=== PATIENT | male | born 1955 ===

== ENCOUNTER 2017-07-07 12:30 | Inpatient (IN) | payer MEDICARE, OTHER ==
[2017-07-07 12:30] VITALS: BMI 36.5
--- NOTE | 2017-07-07 13:16 | C.PDOC ---
History Of Present Illness 61 y/o male, with history of coronary problems, presents to the ER for right- sided abdominal pain which began yesterday afternoon. Patient reports that sent him to the ER in order to have a CAT Scan done. Patient has his lab reports and the hemoglobin count is elevated, the wbc count is normal, and the H&H is normal. Patient reports that he has good appetite and he last ate at 2:30 am in the morning.Patient denies that he has any vomiting, fever, dysuria, and urine frequency. Chief Complaint (Nursing): Abdominal Pain History Per: Patient History/Exam Limitations: no limitations Onset/Duration Of Symptoms: Hrs Current Symptoms Are (Timing): Still Present Severity: Moderate Past Medical History Reviewed: Historical Data, Nursing Documentation, Vital Signs Vital Signs: Last Vital Signs Temp 98.3 F 07/07/17 22:30 Pulse 99 H 07/07/17 22:30 Resp 21 07/07/17 22:30 BP 155/86 H 07/07/17 22:30 Pulse Ox 100 07/07/17 22:30 - Medical History PMH: HTN, Hypercholesterolemia Denies: Chronic Kidney Disease Comment Only: Sleep Apnea (pt denies) Surgical History: CABG (X5), Coronary Stent, Endoscopy Denies: Pacemaker - [facility] Procedures CORONAR ARTERIOGR-2 CATH (03/13/15) INSERTION OF TWO VASCULAR STENTS (03/13/15) INSRT OF DRUG-ELUTING CORON ARTERY STENTS(S) (03/13/15) LEFT HEART CARDIAC CATH (03/13/15) LT HEART ANGIOCARDIOGRAM (03/13/15) MEASURE OF CARDIAC SAMPL & PRESSURE, L HEART, PERC APPROACH (03/06/16) PERCUTANEOUS TRANSLUMINAL CORONARY ANGIOPLASTY [PTCA] (03/13/15) PLAIN RADIOGRAPHY OF LEFT HEART USING LOW OSMOLAR CONTRAST (03/06/16) PLAIN RADIOGRAPHY OF MULT COR ART USING L OSM CONTRAST (03/06/16) PROCEDURE ON SINGLE VESSEL (03/13/15) SPINAL CANAL INJECT NEC (05/31/97) Family History: States: No Known Family Hx - Social History Hx Alcohol Use: No Hx Substance Use: No Review Of Systems Except As Marked, All Systems Reviewed And Found Negative. Constitutional: Negative for: Fever, Chills Gastrointestinal: Positive for: Abdominal Pain. Negative for: Nausea, Vomiting , Diarrhea Genitourinary: Negative for: Dysuria, Frequency Physical Exam - Physical Exam Appears: Non-toxic, No Acute Distress, Other (awake, alert AOx3) Skin: Normal Color, Warm Head: Atraumatic, Normacephalic Eye(s): bilateral: Normal Inspection, PERRL Ear(s): Bilateral: Normal Nose: Normal Oral Mucosa: Moist Neck: Supple Lymphatic: No Adenopathy Chest: Symmetrical, No Tenderness (chest wall) Cardiovascular: Rhythm Regular Respiratory: Normal Breath Sounds, No Accessory Muscle Use, No Rales, No Rhonchi , No Wheezing Gastrointestinal/Abdominal: Normal Exam, Bowel Sounds (active bowel sounds), Soft, Tenderness (right side of abdomen and right costal margin ), Guarding ( RLQ Quadrant) Extremity: Normal ROM Neurological/Psych: Oriented x3, Normal Speech, Normal Cognition, Normal Motor, Normal Sensation ED Course And Treatment - Laboratory Results Result Diagrams: 07/07/17 13:29 07/07/17 13:29 O2 Sat by Pulse Oximetry: 96 (RA) Pulse Ox Interpretation: Normal - CT Scan/US US - Abdomen Other Rad Studies (CT/US): Read By Radiologist, Radiology Report Reviewed CT/US Interpretation: HISTORY: abd pain R sided. COMPARISON: None available. TECHNIQUE: Sonographic evaluation of the right upper quadrant of the abdomen. FINDINGS: LIVER: Measures 16.5 cm in length. Echogenic liver may be seen in setting of hepatic parenchymal disease or fatty infiltration. No focal hepatic mass identified. The main portal vein appears patent with normal directional flow. No intrahepatic bile duct dilatation. GALLBLADDER: No gallstones. No gallbladder wall thickening or pericholecystic edema. Negative sonographic Leahy's sign as assessed by the financial developer. COMMON BILE DUCT: Measures 3 mm. PANCREAS: Not well-visualized. RIGHT KIDNEY: Measures 13.4 x 6.8 x 6.6 cm. No obstructing calculus or hydronephrosis. Upper pole renal cyst measures approximately 1.4 x 1.9 x 1.6 cm. AORTA: Limited visualization appears grossly unremarkable. IVC: Limited visualization appears grossly unremarkable. OTHER FINDINGS: None . IMPRESSION: Echogenic liver may be seen in setting of hepatic parenchymal disease or fatty infiltration. 1.9 cm right upper pole renal cyst. CT - Abdomen Other Rad Studies (CT/US): Read By Radiologist, Radiology Report Reviewed CT/US Interpretation: PROCEDURE: CT Abdomen and Pelvis with contrast. HISTORY : abd pain. COMPARISON: Limited abdominal ultrasound performed 07/07/17. TECHNIQUE: Contrast dose: 100 cc Visipaque 320. Radiation dose: Total exam DLP = 1320.93 mGy-cm. This CT exam was performed using one or more of the following dose reduction techniques: Automated exposure control, adjustment of the mA and/or kV according to patient size, and/or use of iterative reconstruction technique. FINDINGS: LOWER THORAX: Partially imaged loculated left-sided pleural effusion with associated consolidation. LIVER: Unremarkable. GALLBLADDER AND BILE DUCTS: Unremarkable. PANCREAS: Pancreatic atrophy. SPLEEN: Unremarkable. ADRENALS: Unremarkable. KIDNEYS AND URETERS: The kidneys enhance symmetrically. No hydronephrosis or obstructing calculus identified. 18 mm low-density exophytic right upper pole renal lesion measures approximately 13 HU, likely cyst. Additional 17 mm left renal lesion measures approximately 7 HU consistent with cyst. Too small to characterize left renal hypodensity; statistically likely cyst. VASCULATURE: No aortic aneurysm. BOWEL: Stomach is nondistended. Lack of oral contrast limits evaluation for bowel pathology. Bowel loops appear within normal limits of caliber without evidence of obstruction. APPENDIX: Dilated appendix measuring approximately 13 mm contains evidence of appendicolith and associated inflammatory stranding ; appearance consistent with acute appendicitis. Correlate clinically. PERITONEUM: No significant free fluid. No definite air. LYMPH NODES: No bulky adenopathy identified. BLADDER: Unremarkable. REPRODUCTIVE: The prostate gland measures approximately 3.9 x 5.8 cm. BONES: Degenerative changes most severe at L5-S1 with obliteration of the intervertebral disc space. OTHER FINDINGS: Fat containing left inguinal hernia. IMPRESSION: Partially imaged loculated left-sided pleural effusion with associated consolidation. Dilated appendix measuring approximately 13 mm contains evidence of appendicolith and associated inflammatory stranding ; appearance consistent with acute appendicitis. Correlate clinically. Enlarged prostate gland. Recommend correlation with PSA. Additional findings as above. Emergent findings related to the patient's MERLENE Mena on 07/07/17 at 3:48 p.m. Medical Decision Making Medical Decision Making: Differential Diagnoses Appendicitis vs. Cholecystitis vs. Bowel Obstruction Plan: -- Abd. & Pelv. CT -- Abdomen Limited CT --Labs Test Results -- WBC- high --US- Neg for GallBladder Disease Disposition Discussed With : Bonita Dunlap - Disposition Disposition: HOSPITALIZED Disposition Time: 16:11 Condition: GUARDED - Clinical Impression Clinical Impression: Appendicitis - Scribe Statement The provider has reviewed the documentation as recorded by the Jaunibe Laura Winn Provider Attestation: All medical record entries made by the Jaunibe were at my direction and personally dictated by me. I have reviewed the chart and agree that the record accurately reflects my personal performance of the history, physical exam, medical decision making, and the department course for this patient. I have also personally directed, reviewed, and agree with the discharge instructions and disposition.
[2017-07-07 13:39] LABS: BASO # 0.1 K/uL (0.0-0.2); BASO % 0.7 % (0.0-2.0); EOS # 0.2 K/uL (0.0-0.7); EOS % 1.6 % (0.0-4.0); LYMPH # 1.5 K/uL (1.0-4.3); LYMPH % 12.3 % (20.0-40.0); MEAN CELL VOLUME 81.2 fL (80.0-94.0); MEAN CORPUSCULAR HEMOGLOBIN 26.4 pg (27.0-31.0); MEAN CORPUSCULAR HGB CONC 32.5 g/dL (33.0-37.0); MEAN PLATELET VOLUME 8.5 fL (7.2-11.7); MONO # 0.7 K/uL (0.0-0.8); NEUT # 9.7 K/uL (1.8-7.0); NEUT % 79.4 % (50.0-75.0); RBC 5.31 Mil/uL (4.40-5.90); RED CELL DISTRIBUTION WIDTH 14.4 % (11.5-14.5)
[2017-07-07 13:41] LABS: WHITE BLOOD COUNT 12.2 K/uL (4.8-10.8)
[2017-07-07 13:53] LABS: URINE BACTERIA RARE (<OCC); URINE BILIRUBIN NEGATIVE (NEGATIVE); URINE BLOOD 1+ (NEGATIVE); URINE CLARITY Clear (Clear); URINE COLOR Yellow (YELLOW); URINE GLUCOSE (UA) 3+ mg/dL (Normal); URINE LEUKOCYTE ESTERASE NEG Leu/uL (Negative); URINE NITRATE NEGATIVE (NEGATIVE); URINE PROTEIN 2+ mg/dL (NEGATIVE); URINE UROBILINOGEN NORMAL mg/dL (0.2-1.0)
[2017-07-07 14:00] LABS: CALCIUM 8.2 mg/dl (8.6-10.4); GFR AFRICAN-AMERICAN > 60; GFR NON-AFRICAN AMERICAN > 60; LIPASE 24 U/L (23-300)
[2017-07-07 14:05] LABS: ALB/GLOB RATIO 0.8 (1.0-2.1); ALBUMIN 4.1 g/dL (3.5-5.0); ALT/SGPT < 6 U/L (21-72); AST/SGOT 66 U/L (17-59); BLOOD UREA NITROGEN 12 mg/dL (9-20)
--- NOTE | 2017-07-07 14:49 | US ---
HISTORY: abd pain R sided COMPARISON: None available. TECHNIQUE: Sonographic evaluation of the right upper quadrant of the abdomen. FINDINGS: LIVER: Measures 16.5 cm in length. Echogenic liver may be seen in setting of hepatic parenchymal disease or fatty infiltration. No focal hepatic mass identified. The main portal vein appears patent with normal directional flow. No intrahepatic bile duct dilatation. GALLBLADDER: No gallstones. No gallbladder wall thickening or pericholecystic edema. Negative sonographic Leahy's sign as assessed by the analytical chemistry teacher. COMMON BILE DUCT: Measures 3 mm. PANCREAS: Not well-visualized. RIGHT KIDNEY: Measures 13.4 x 6.8 x 6.6 cm. No obstructing calculus or hydronephrosis. Upper pole renal cyst measures approximately 1.4 x 1.9 x 1.6 cm. AORTA: Limited visualization appears grossly unremarkable. IVC: Limited visualization appears grossly unremarkable. OTHER FINDINGS: None . IMPRESSION: Echogenic liver may be seen in setting of hepatic parenchymal disease or fatty infiltration. 1.9 cm right upper pole renal cyst.
[2017-07-07] MEDS ORDERED: Iodixanol 320 MG/ML 100 ML BOTTLE IV ONE (14:52)
--- NOTE | 2017-07-07 16:07 | CT ---
PROCEDURE: CT Abdomen and Pelvis with contrast HISTORY: abd pain COMPARISON: Limited abdominal ultrasound performed 07/07/17 TECHNIQUE: Contrast dose: 100 cc Visipaque 320 Radiation dose: Total exam DLP = 1320.93 mGy-cm. This CT exam was performed using one or more of the following dose reduction techniques: Automated exposure control, adjustment of the mA and/or kV according to patient size, and/or use of iterative reconstruction technique. FINDINGS: LOWER THORAX: Partially imaged loculated left-sided pleural effusion with associated consolidation. LIVER: Unremarkable. GALLBLADDER AND BILE DUCTS: Unremarkable. PANCREAS: Pancreatic atrophy. SPLEEN: Unremarkable. ADRENALS: Unremarkable. KIDNEYS AND URETERS: The kidneys enhance symmetrically. No hydronephrosis or obstructing calculus identified. 18 mm low-density exophytic right upper pole renal lesion measures approximately 13 HU, likely cyst. Additional 17 mm left renal lesion measures approximately 7 HU consistent with cyst. Too small to characterize left renal hypodensity; statistically likely cyst. VASCULATURE: No aortic aneurysm. BOWEL: Stomach is nondistended. Lack of oral contrast limits evaluation for bowel pathology. Bowel loops appear within normal limits of caliber without evidence of obstruction. APPENDIX: Dilated appendix measuring approximately 13 mm contains evidence of appendicolith and associated inflammatory stranding ; appearance consistent with acute appendicitis. Correlate clinically. PERITONEUM: No significant free fluid. No definite air. LYMPH NODES: No bulky adenopathy identified. BLADDER: Unremarkable. REPRODUCTIVE: The prostate gland measures approximately 3.9 x 5.8 cm. BONES: Degenerative changes most severe at L5-S1 with obliteration of the intervertebral disc space. OTHER FINDINGS: Fat containing left inguinal hernia. IMPRESSION: Partially imaged loculated left-sided pleural effusion with associated consolidation. Dilated appendix measuring approximately 13 mm contains evidence of appendicolith and associated inflammatory stranding ; appearance consistent with acute appendicitis. Correlate clinically. Enlarged prostate gland. Recommend correlation with PSA. Additional findings as above. Emergent findings related to the patient's RN Trina on 07/07/17 at 3:48 p.m.
[2017-07-07] MEDS ORDERED: Piperacill/Tazo 3.375gm in Dex 3.375 GM/50 ML BAG IVPB STA (18:03)
--- NOTE | 2017-07-07 18:05 | CP.PCM.CON ---
History of Present Illness - History of Present Illness History of Present Illness: General Surgery Consult Note: 61 year old male who presents to the ED due to RLQ abdominal pain. Patient saw his primary doctor Dr. Mace (in [place]) this morning at 10:30am and was sent to the ED for evaluation. Patient states that his abdominal pain started yesterday around 2-3pm while he was driving. Pain is described at pressure-like, non-radiating and constant. Pain is 3/10 right now and 7/10 at its worst. Pain is exacerbated with movement and palpation. Patient took Motrin 800mg yesterday with minimal improvement in pain. He reports no fever, chills, nausea, vomiting, diarrhea, constipation, melena, hematochezia, change in appetite. Last meal was at 2:30am today (sandwich and coffee) and last bowel movement was at 7:30am today. Patient takes multiple medications but states that he did not take his medications as prescribed today. PMD: Dr. Mace Health Services Manager: Dr. Corona Endless Belt Finisher: Dr. Dunlap Past Medical History: CAD, HTN, hypercholesterolemia, DM, chronic cough post- surgery Past Surgical History: CABGx5 (February 2016), Coronary Stent x 5 (2013), Spinal Surgery 1995 due to accident Medications: patient doesn't know all medications (ASA, Plavix, Norvasc, Januvia , Lantus) Social History: Tobacco: 30 pack year (quit 20 years ago); ETOH 1 shot/year; denies illicit drug use; Lives with and 2 children; on social security disability due to accident in 1995; [place]; Originally from [facility] Review of Systems - Constitutional Constitutional: absent: Fever, Headache - EENT Eyes: absent: Change in Vision Ears: absent: Dizziness - Cardiovascular Cardiovascular: absent: Chest Pain, Dyspnea, Lightheadedness, Palpitations - Respiratory Respiratory: Cough (chronic cough). absent: Dyspnea - Gastrointestinal Gastrointestinal: Abdominal Pain (RLQ pain). absent: Constipation, Diarrhea, Nausea, Vomiting - Endocrine Endocrine: absent: Palpitations Past Patient History - Infectious Disease Hx of Infectious Diseases: None - Past Medical History & Family History Past Medical History?: Yes - Past Social History Smoking Status: Former Smoker - CARDIAC Hx Hypercholesterolemia: Yes Hx Hypertension: Yes Hx Pacemaker: No - PULMONARY Hx Sleep Apnea: (pt denies) - NEUROLOGICAL Hx Neurological Disorder: No Hx Paralysis: No - HEENT Hx HEENT Problems: Yes (eyeglasses) - RENAL Hx Chronic Kidney Disease: No - ENDOCRINE/METABOLIC Hx Endocrine Disorders: Yes Hx Diabetes Mellitus Type 1: Yes - HEMATOLOGICAL/ONCOLOGICAL Hx Blood Disorders: No - INTEGUMENTARY Hx Dermatological Problems: No - MUSCULOSKELETAL/RHEUMATOLOGICAL Hx Musculoskeletal Disorders: Yes Hx Back Pain: Yes (LUMBAR) Hx Falls: No - GASTROINTESTINAL Hx Gastrointestinal Disorders: Yes (obese) - GENITOURINARY/GYNECOLOGICAL Hx Genitourinary Disorders: No - PSYCHIATRIC Hx Substance Use: No - SURGICAL HISTORY Hx Coronary Artery Bypass Graft: Yes (X5) Hx Coronary Stent: Yes - ANESTHESIA Hx Anesthesia: Yes Hx Anesthesia Reactions: No Hx Malignant Hyperthermia: No Meds Allergies/Adverse Reactions: Allergies Allergy/AdvReac Type Severity Reaction Status Date / Time No Known Allergies Allergy Verified 07/19/16 09:11 - Medications Medications: Current Medications Piperacillin Sod/Tazobactam Sod (Zosyn 3.375 Gm Iv Premix) 3.375 gm in 50 mls @ 200 mls/hr IVPB Q6H JOSE ALFREDO Sodium Chloride (Sodium Chloride 0.9%) 1,000 mls @ 100 mls/hr IV .Q10H JOSE ALFREDO Physical Exam - Constitutional Appears: No Acute Distress - Head Exam Head Exam: ATRAUMATIC, NORMAL INSPECTION - Eye Exam Eye Exam: EOMI, Normal appearance - ENT Exam ENT Exam: Mucous Membranes Moist - Respiratory Exam Respiratory Exam: Clear to Auscultation Bilateral, NORMAL BREATHING PATTERN. absent: Rales, Rhonchi, Wheezes - Cardiovascular Exam Cardiovascular Exam: REGULAR RHYTHM, RRR, +S1, +S2 - GI/Abdominal Exam GI & Abdominal Exam: Guarding, Normal Bowel Sounds, Soft, Tenderness (RLQ tenderness; negative rovsing sign). absent: Distended - Extremities Exam Extremities exam: Positive for: normal inspection. Negative for: calf tenderness, tenderness - Neurological Exam Neurological exam: Alert, Oriented x3 - Psychiatric Exam Psychiatric exam: Normal Affect, Normal Mood - Skin Skin Exam: Normal Color, Warm Results - Vital Signs Recent Vital Signs: Last Vital Signs Temp 97.6 F 07/07/17 16:46 Pulse 104 H 07/07/17 16:46 Resp 20 07/07/17 16:46 BP 150/88 01/11/18 16:46 Pulse Ox 96 07/07/17 17:03 - Labs Result Diagrams: 07/07/17 13:29 07/07/17 13:29 Labs: Laboratory Results - last 24 hr 07/07/17 07/07/17 07/07/17 13:29 13:29 13:29 WBC 12.2 H D RBC 5.31 Hgb 14.0 Hct 43.1 MCV 81.2 MCH 26.4 L MCHC 32.5 L RDW 14.4 Plt Count 316 D MPV 8.5 Neut % (Auto) 79.4 H Lymph % (Auto) 12.3 L [place] % (Auto) 6.0 Eos % (Auto) 1.6 Baso % (Auto) 0.7 Neut # 9.7 H Lymph # 1.5 [place] # 0.7 Eos # 0.2 Baso # 0.1 Sodium 130 L Potassium 5.5 H Chloride 97 L Carbon Dioxide 26 Anion Gap 13 BUN 12 Creatinine 0.5 L Est GFR ( Amer) > 60 Est GFR (Non-Af Amer) > 60 Random Glucose 288 H Calcium 8.2 L Total Bilirubin 1.7 H AST 66 H ALT < 6 L Alkaline Phosphatase 131 H Total Protein 9.2 H Albumin 4.1 Globulin 5.0 H Albumin/Globulin Ratio 0.8 L Lipase 24 Urine Color Yellow Urine Clarity Clear Urine pH 6.0 Ur Specific [place] 1.033 H Urine Protein 2+ H Urine Glucose (UA) 3+ H Urine Ketones 1+ H Urine Blood 1+ H Urine Nitrate Negative Urine Bilirubin Negative Urine Urobilinogen Normal Ur Leukocyte Esterase Neg Urine WBC (Auto) < 1 Urine RBC (Auto) 3 Urine Bacteria Rare Assessment & Plan - Assessment and Plan (Free Text) Assessment: 61 year old male with past medical history of CABG, HTN, DM presents to the ED for abdominal pain. Acute appendicitis - Abdominal US: Echogenic liver may be seen in setting of hepatic parenchymal disease or fatty infiltration. 1.9 cm right upper pole renal cyst. - Abdominal/Pelvic CT: Partially imaged loculated left-sided pleural effusion with associated consolidation. Dilated appendix measuring approximately 13 mm contains evidence of appendicolith and associated inflammatory stranding ; appearance consistent with acute appendicitis. Correlate clinically. Enlarged prostate gland. - NPO - Zosyn - IVF - f/u INR - Type and Cross ordered; Platelets 1 unit ordered - OR 07/07/18 at 20:00 Gill Stevenson PGY-1
[2017-07-07 18:48] LABS: INR 1.1; PROTHROMBIN TIME 13.1 SECONDS (9.7-12.2)
--- NOTE | 2017-07-07 18:49 | CP.PCM.HP ---
History of Present Illness - History of Present Illness History of Present Illness: chief complaint: abd pain History present illness: 60-year-old male with history of diabetes, hypertension, hypercholesterolemia, coronary artery disease, status post coronary a to bypass grafting 5 vessel disease in February 2016, came to ER with abdominal pain for 2 days duration started yesterday associated with nausea and no vomiting. pain localised to the RLQ and went to see PMD and sent to ER. Patient has a uncontrolled diabetes, currently taking insulin, and if he has a significant weight gain in the last 2 months almost 18 pounds. Patient is also having some problems sleeping at night. Patient went to the emergency room on March 23, 2016 for cough. Patient had x-ray which was showing some pleural effusion. Past medical history: Hypertension, diabetes, hypercholesterolemia, CAD Surgical history: History of lower back surgery in 1992, coronary a to bypass grafting February 2016. Five-vessel bypass Allergies: No known drug allergy Family history: Parents history of heart disease. Siblings also had a history of heart disease family history of diabetes noted Social history: Currently denies any alcohol. Patient used to smoke in the past at least one pack per day for 23 years: No smoking now for the last 5 years. Current medications noted Review of systems: Has no headache. But complaining of sore throat, frequency, cough on and off, shortness of breath occasionally. sudden abd pain and chills. Leg swelling bilaterally noted On examination: Vital signs reviewed Chest bilateral good air entry but basal rales and wheezing noted Patient has thick and short neck noted. The orall cavity is crowded Regular heart sound. Scar tissue in the sternal region and lower back noted Abdomen RLQ tenderness noted Extremities 1+ pedal edema bilaterally Patient had x-ray done in May 23, 2016 at the [facility], showing evidence of increasing markings, and left lower lung possibly atelectasis, effusion, fibrotic changes. Blood sugar is elevated labs reviwed elevated sugar CT abd appendicitis and appediculolith Assessment/recommendation: 60-year-old male came to the office. He has a history of uncontrolled diabetes currently on insulin, significant weight gain, not controlled well Hypertension , still elevated. Hypercholesterolemia on medications. Progressively worsening cough new Most likely patient given the history of COPD , smoking, heart disease and bypass surgery underlaying reactive airway disease , associated acute exacerbation of COPD, and fibrotic changes in the lungs cannot be ruled out. X-ray showing evidence of pleural effusion atelectasis and some chronic changes in the lung with new findings. pt with acute appencitis he will need the urgert surgery pt took his last palvix yesterday morning today no aspirin or plavix he has short neck and severe Ryan and pt is at high risk for sleep apnea related problems, avoid sedatives, only NSAID, tylenol as pain control cardiology consult spoke to pt IV antibiotic will f/u Present on Admission - Present on Admission Any Indicators Present on Admission: No History of DVT/PE: No History of Uncontrolled Diabetes: No Urinary Catheter: No Decubitus Ulcer Present: No Past Patient History - Infectious Disease Hx of Infectious Diseases: None - Past Medical History & Family History Past Medical History?: Yes - Past Social History Smoking Status: Former Smoker - CARDIAC Hx Hypercholesterolemia: Yes Hx Hypertension: Yes Hx Pacemaker: No - PULMONARY Hx Sleep Apnea: (pt denies) - NEUROLOGICAL Hx Neurological Disorder: No Hx Paralysis: No - HEENT Hx HEENT Problems: Yes (eyeglasses) - RENAL Hx Chronic Kidney Disease: No - ENDOCRINE/METABOLIC Hx Endocrine Disorders: Yes Hx Diabetes Mellitus Type 1: Yes - HEMATOLOGICAL/ONCOLOGICAL Hx Blood Disorders: No - INTEGUMENTARY Hx Dermatological Problems: No - MUSCULOSKELETAL/RHEUMATOLOGICAL Hx Musculoskeletal Disorders: Yes Hx Back Pain: Yes (LUMBAR) Hx Falls: No - GASTROINTESTINAL Hx Gastrointestinal Disorders: Yes (obese) - GENITOURINARY/GYNECOLOGICAL Hx Genitourinary Disorders: No - PSYCHIATRIC Hx Substance Use: No - SURGICAL HISTORY Hx Coronary Artery Bypass Graft: Yes (X5) Hx Coronary Stent: Yes - ANESTHESIA Hx Anesthesia: Yes Hx Anesthesia Reactions: No Hx Malignant Hyperthermia: No Meds Allergies/Adverse Reactions: Allergies Allergy/AdvReac Type Severity Reaction Status Date / Time No Known Allergies Allergy Verified 07/19/16 09:11 Results - Vital Signs Recent Vital Signs: Last Vital Signs Temp 97.6 F 07/07/17 16:46 Pulse 104 H 07/07/17 16:46 Resp 20 07/07/17 16:46 BP 150/88 07/07/17 16:46 Pulse Ox 96 07/07/17 17:03 - Labs Result Diagrams: 07/07/17 13:29 07/07/17 13:29 Labs: Laboratory Results - last 24 hr 07/07/17 07/07/17 07/07/17 13:29 13:29 13:29 WBC 12.2 H D RBC 5.31 Hgb 14.0 Hct 43.1 MCV 81.2 MCH 26.4 L MCHC 32.5 L RDW 14.4 Plt Count 316 D MPV 8.5 Neut % (Auto) 79.4 H Lymph % (Auto) 12.3 L [place] % (Auto) 6.0 Eos % (Auto) 1.6 Baso % (Auto) 0.7 Neut # 9.7 H Lymph # 1.5 [place] # 0.7 Eos # 0.2 Baso # 0.1 Sodium 130 L Potassium 5.5 H Chloride 97 L Carbon Dioxide 26 Anion Gap 13 BUN 12 Creatinine 0.5 L Est GFR ( Amer) > 60 Est GFR (Non-Af Amer) > 60 Random Glucose 288 H Calcium 8.2 L Total Bilirubin 1.7 H AST 66 H ALT < 6 L Alkaline Phosphatase 131 H Total Protein 9.2 H Albumin 4.1 Globulin 5.0 H Albumin/Globulin Ratio 0.8 L Lipase 24 Urine Color Yellow Urine Clarity Clear Urine pH 6.0 Ur Specific [place] 1.033 H Urine Protein 2+ H Urine Glucose (UA) 3+ H Urine Ketones 1+ H Urine Blood 1+ H Urine Nitrate Negative Urine Bilirubin Negative Urine Urobilinogen Normal Ur Leukocyte Esterase Neg Urine WBC (Auto) < 1 Urine RBC (Auto) 3 Urine Bacteria Rare
[2017-07-07] MEDS ORDERED: Piperacill/Tazo 3.375gm in Dex 3.375 GM/50 ML BAG IVPB SCH (19:00)
[2017-07-07] MEDS ORDERED: metroNIDAZOLE IV 500 mg/100 ml 0 MG/0 ML BAG ONE (19:47)
[2017-07-07] MEDS ORDERED: Piperacillin/Tazobact 3.375 gm 0 ML IVPB ONE (19:48)
[2017-07-07] MEDS ORDERED: ceFAZolin IV 2 gm in Dextrose 2 GM/50 ML BAG IVPB ONE (19:48)
[2017-07-07] MEDS ORDERED: ceFAZolin IV 1 gm in Dextrose 0 GM/0 ML BAG IVPB ONE (19:48)
[2017-07-07] MEDS ORDERED: Lidocaine 1% Inj (20ml) ONE (19:49)
[2017-07-07] MEDS ORDERED: Bupivacaine HCl 0.25% PF (10 ml) Inj ONE (19:49)
[2017-07-07] MEDS ORDERED: Lidocaine 2% w Epi 1:100,000 Inj IJ ONE (19:49)
[2017-07-07] MEDS ORDERED: Bupivacaine HCl 0.5% PF (10 ml) Inj ONE (19:50)
[2017-07-07] MEDS ORDERED: Albuterol 0.042% Inhal Sol (1.25 mg/3 mL) UD INH STA (19:57)
[2017-07-07] MEDS ORDERED: Succinylcholine Chloride 20 mg/ml Syr (5 ml) IV ONE (20:09)
[2017-07-07] MEDS ORDERED: Lactated Ringer's 1,000 ML IV ONE ×2 (20:09)
[2017-07-07] MEDS ORDERED: Propofol 10 mg/ml Inj (20 ML) ONE (20:09)
[2017-07-07] MEDS ORDERED: Phenylephrine 10 mg/ml Inj ONE (20:11)
[2017-07-07] MEDS ORDERED: Etomidate 20 mg/10ml Inj IV ONE (20:14)
[2017-07-07] MEDS ORDERED: Sodium Chloride 0.9% 1,000 ML IV ONE (20:19)
[2017-07-07] MEDS ORDERED: Rocuronium 10 mg/ml (5 ml) ONE (20:19)
[2017-07-07] MEDS ORDERED: Neostigmine Methylsulfate 3mg/3ml Syringe IV ONE (20:56)
--- NOTE | 2017-07-07 21:43 | PCM.SURG1 ---
Surgeon's Initial Post Op Note - Surgeon's Notes Surgeon: Dr. Pacheco Crab Picker: alfredo Lawson PGY2 Type of Anesthesia: General Endo Pre-Operative Diagnosis: Acute appendicitis Operative Findings: Inflammed gallbladder Post-Operative Diagnosis: Same Operation Performed: Lap appendectomy Specimen/Specimens Removed: Appendix Estimated Blood Loss: EBL {In ML}: 18 Blood Products Given: N/A Drains Used: No Drains Post-Op Condition: Good Date of Surgery/Procedure: 07/07/17 Time of Surgery/Procedure: 21:43
[2017-07-07] MEDS: SODIUM CHLORIDE 0.9% IV SCH (22:25)
[2017-07-07] MEDS: CEFOTAXIME IV SCH (22:25)
[2017-07-07] MEDS: (Novolin R) Insulin Human Regular 100 units/ml vial SC SCH (22:58)
[2017-07-07] MEDS: metroNIDAZOLE IV 500 mg/100 ml 250 MG in Premixed IV 1 EA IVPB SCH (23:08)
[2017-07-08 01:33] VITALS: RESP 20
[2017-07-08] MEDS: SODIUM CHLORIDE 0.9% IV SCH (04:09)
[2017-07-08] MEDS: CEFOTAXIME IV SCH (04:09)
[2017-07-08] MEDS: Sodium Chloride 0.9% 1,000 ML IV SCH ×2 (04:29→15:00)
[2017-07-08] MEDS: metroNIDAZOLE IV 500 mg/100 ml 250 MG in Premixed IV 1 EA IVPB SCH ×2 (06:00→13:47)
--- NOTE | 2017-07-08 07:08 | OP ---
PROCEDURE DATE: 07/07/2017 PREOPERATIVE DIAGNOSIS: Acute appendicitis. POSTOPERATIVE DIAGNOSIS: Acute appendicitis. PROCEDURE PERFORMED: Laparoscopic appendectomy. SURGEON: Jeremy Pacheco MD. DISTRICT SALES LEADER: Manuela Lawson. FINDINGS: There is tremendous amount of intestinal distention, mostly small bowel. There is no fluid in the peritoneal cavity. There is no evidence of any perforation of the appendix. The appendix itself was markedly dilated, it was very inflamed, and has a very short meso, making it impossible to dissect it. DESCRIPTION OF PROCEDURE: Under general anesthesia, the patient was prepared and draped in the usual sterile fashion. CO2 was insufflated through a Veress needle inserted in the umbilicus. A 12-mm trocar was inserted in the umbilical area, 5-mm in the suprapubic area and a 5-mm in the left lower quadrant. The patient was placed in the Trendelenburg position and was turned over towards the left side. The appendix was identified. It was crushed close to the base. A window was created at the base of the appendix. It was transected with the aid of the suture model Endo PETRONA with the blue genevieve. The mesoappendix was then controlled with LigaSure in a serial fashion until the entire appendix was freed. Bleeders controlled with electrocautery, and irrigation with large amount of saline solution demonstrated no further bleeding. The appendix was placed in the EndoCatch and was extracted through the umbilical port. Further suctioning of the irrigating fluid was done. CO2 allowed to escape from the peritoneal cavity. Trocars removed. The wound closed in a routine fashion. Estimated blood loss, about 20 mL. No complications. Jeremy Pacheco MD
[2017-07-08 07:30] LABS: HEMOGLOBIN 12.8 g/dL (12.0-18.0); MEAN CELL VOLUME 81.4 fL (80.0-94.0); MEAN CORPUSCULAR HGB CONC 33.1 g/dL (33.0-37.0); RBC 4.74 Mil/uL (4.40-5.90); RED CELL DISTRIBUTION WIDTH 14.3 % (11.5-14.5); WHITE BLOOD COUNT 10.1 K/uL (4.8-10.8)
[2017-07-08] MEDS: (Novolin R) Insulin Human Regular 100 units/ml vial SC SCH ×4 (07:35→21:57)
[2017-07-08 08:24] LABS: ALB/GLOB RATIO 0.9 (1.0-2.1); ALBUMIN 3.5 g/dL (3.5-5.0); ALT/SGPT 16 U/L (21-72); AST/SGOT 19 U/L (17-59); BLOOD UREA NITROGEN 8 mg/dL (9-20); CALCIUM 7.9 mg/dl (8.6-10.4); GFR AFRICAN-AMERICAN > 60; GFR NON-AFRICAN AMERICAN > 60
--- NOTE | 2017-07-08 08:45 | CP.PCM.PN ---
Subjective - Date & Time of Evaluation Date of Evaluation: 07/08/17 Time of Evaluation: 07:00 - Subjective Subjective: General Surgery Progress Note: Patient was seen and examined at bedside in the AM. Patient states he has minor pain but overall feels well. He denies fever, nausea, vomiting, shortness of breath, chest pain, diarrhea or constipation. Objective - Vital Signs/Intake and Output Vital Signs (last 24 hours): Temp Pulse Resp BP Pulse Ox 98.8 F 98 H 20 157/84 H 97 07/07/17 23:55 07/08/17 01:30 07/07/17 23:55 07/07/17 23:55 07/07/17 23:55 - Medications Medications: Current Medications Acetaminophen (Tylenol 325mg Tab) 975 mg PO Q6 PRN PRN Reason: Fever >100.4 F Amlodipine Besylate (Norvasc) 5 mg PO QAM [facility] Hydromorphone HCl (Dilaudid) 1 mg IVP Q4H PRN PRN Reason: Pain, severe (8-10) Last Admin: 07/08/17 04:03 Dose: 1 mg Sodium Chloride (Sodium Chloride 0.9%) 1,000 mls @ 100 mls/hr IV .Q10H [facility] Last Admin: 07/08/17 04:29 Dose: Not Given Cefotaxime Sodium 1 gm/ Sodium (Chloride) 50 mls @ 100 mls/hr IV Q8H [facility] Last Admin: 07/08/17 04:09 Dose: Not Given Metronidazole 250 mg/ (Miscellaneous) 50 mls @ 100 mls/hr IVPB Q8 [facility] Last Admin: 07/08/17 06:00 Dose: Not Given Insulin Human Regular (Novolin R) 0 unit SC ACHS [facility] PRN Reason: Protocol Last Admin: 07/07/17 22:58 Dose: Not Given Losartan Potassium (Cozaar) 25 mg PO DAILY [facility] Metoprolol Tartrate (Lopressor) 50 mg PO BID [facility] Ondansetron HCl (Zofran Inj) 4 mg IVP Q4 PRN PRN Reason: Nausea/Vomiting Pantoprazole Sodium (Protonix Inj) 40 mg IVP DAILY [facility] Rosuvastatin Calcium (Crestor) 20 mg PO HS [facility] Last Admin: 07/07/17 23:09 Dose: 20 mg Tramadol HCl (Ultram) 50 mg PO TID [facility] - Labs Labs: 07/08/17 07:22 07/08/17 07:22 PT 13.1 SECONDS (9.7-12.2) H 07/07/17 18:35 INR 1.1 07/07/17 18:35 APTT 25 SECONDS (21-34) 07/07/17 18:35 - Constitutional Appears: No Acute Distress - Head Exam Head Exam: ATRAUMATIC, NORMAL INSPECTION - Eye Exam Eye Exam: EOMI, Normal appearance - ENT Exam ENT Exam: Mucous Membranes Moist - Respiratory Exam Respiratory Exam: NORMAL BREATHING PATTERN - Cardiovascular Exam Cardiovascular Exam: REGULAR RHYTHM, +S1, +S2 - GI/Abdominal Exam GI & Abdominal Exam: Soft, Normal Bowel Sounds. absent: Tenderness - Extremities Exam Extremities Exam: Normal Inspection - Neurological Exam Neurological Exam: Alert, Awake, Oriented x3 - Psychiatric Exam Psychiatric exam: Normal Affect, Normal Mood - Skin Skin Exam: Dry, Intact, Normal Color, Warm Assessment and Plan - Assessment and Plan (Free Text) Assessment: 61 year old male with past medical history of CABG, HTN, DM presents to the ED for abdominal pain. Post OP day 1 s/p Lap appendectomy. Acute appendicitis - Abdominal US: Echogenic liver may be seen in setting of hepatic parenchymal disease or fatty infiltration. 1.9 cm right upper pole renal cyst. - Abdominal/Pelvic CT: Partially imaged loculated left-sided pleural effusion with associated consolidation. Dilated appendix measuring approximately 13 mm contains evidence of appendicolith and associated inflammatory stranding ; appearance consistent with acute appendicitis. Correlate clinically. Enlarged prostate gland. - Cefotaxime - IVF - Patient stable for discharge from a surgical standpoint - Okay to restart Plavix - Patient to follow up with Dr. Pacheco in 1 week - Okay to go back to work next week. No heavy lifting for one month. Gill Stevenson PGY-1
--- NOTE | 2017-07-08 13:20 | CP.PCM.CON ---
History of Present Illness - History of Present Illness History of Present Illness: CC: cardiac eveluation HPI 61 y/o male, with hx of CAD s/p CABG, HTN, DM2 admitted for abdominal pain. S/P appendectomy Uneventful Denies chest pain and dyspnea - Medical History PMH: HTN, Hypercholesterolemia Denies: Chronic Kidney Disease Comment Only: Sleep Apnea (pt denies) Surgical History: CABG (X5), Coronary Stent, Endoscopy Denies: Pacemaker - [facility] Procedures CORONAR ARTERIOGR-2 CATH (03/13/15) INSERTION OF TWO VASCULAR STENTS (03/13/15) INSRT OF DRUG-ELUTING CORON ARTERY STENTS(S) (03/13/15) LEFT HEART CARDIAC CATH (03/13/15) LT HEART ANGIOCARDIOGRAM (03/13/15) MEASURE OF CARDIAC SAMPL & PRESSURE, L HEART, PERC APPROACH (03/06/16) PERCUTANEOUS TRANSLUMINAL CORONARY ANGIOPLASTY [PTCA] (03/13/15) PLAIN RADIOGRAPHY OF LEFT HEART USING LOW OSMOLAR CONTRAST (03/06/16) PLAIN RADIOGRAPHY OF MULT COR ART USING L OSM CONTRAST (03/06/16) PROCEDURE ON SINGLE VESSEL (03/13/15) SPINAL CANAL INJECT NEC (05/31/97) Family History: States: No Known Family Hx - Social History Hx Alcohol Use: No Hx Substance Use: No Review Of Systems Except As Marked, All Systems Reviewed And Found Negative. Constitutional: Negative for: Fever, Chills Gastrointestinal: Negative for: Abdominal Pain. Negative for: Nausea, Vomiting , Diarrhea Genitourinary: Negative for: Dysuria, Frequency Physical Exam - Physical Exam Appears: Non-toxic, No Acute Distress, Other (awake, alert AOx3) Skin: Normal Color, Warm Head: Atraumatic, Normacephalic Eye(s): bilateral: Normal Inspection, PERRL Ear(s): Bilateral: Normal Nose: Normal Oral Mucosa: Moist Neck: Supple Lymphatic: No Adenopathy Chest: Symmetrical, No Tenderness (chest wall) Cardiovascular: Rhythm Regular Respiratory: Normal Breath Sounds, No Accessory Muscle Use, No Rales, No Rhonchi , No Wheezing Gastrointestinal/Abdominal: Normal Exam, Bowel Sounds (active bowel sounds), Soft Extremity: Normal ROM Neurological/Psych: Oriented x3, Normal Speech, Normal Cognition, Normal Motor, Normal Sensation Past Patient History - Infectious Disease Hx of Infectious Diseases: None - Past Medical History & Family History Past Medical History?: Yes - Past Social History Smoking Status: Former Smoker - CARDIAC Hx Hypercholesterolemia: Yes Hx Hypertension: Yes Hx Pacemaker: No - PULMONARY Hx Sleep Apnea: (pt denies) - NEUROLOGICAL Hx Neurological Disorder: No Hx Paralysis: No - HEENT Hx HEENT Problems: Yes (eyeglasses) - RENAL Hx Chronic Kidney Disease: No - ENDOCRINE/METABOLIC Hx Endocrine Disorders: Yes Hx Diabetes Mellitus Type 1: Yes - HEMATOLOGICAL/ONCOLOGICAL Hx Blood Disorders: No - INTEGUMENTARY Hx Dermatological Problems: No - MUSCULOSKELETAL/RHEUMATOLOGICAL Hx Falls: No - GASTROINTESTINAL Hx Gastrointestinal Disorders: Yes (obese) - GENITOURINARY/GYNECOLOGICAL Hx Genitourinary Disorders: No - PSYCHIATRIC Hx Substance Use: No - SURGICAL HISTORY Hx Coronary Artery Bypass Graft: Yes (X5) Hx Coronary Stent: Yes - ANESTHESIA Hx Anesthesia: Yes Hx Anesthesia Reactions: No Hx Malignant Hyperthermia: No Meds Allergies/Adverse Reactions: Allergies Allergy/AdvReac Type Severity Reaction Status Date / Time No Known Allergies Allergy Verified 07/19/16 09:11 - Medications Medications: Current Medications Acetaminophen (Tylenol 325mg Tab) 975 mg PO Q6 PRN PRN Reason: Fever >100.4 F Amlodipine Besylate (Norvasc) 5 mg PO QAM [facility] Last Admin: 07/08/17 10:34 Dose: 5 mg Hydromorphone HCl (Dilaudid) 1 mg IVP Q4H PRN PRN Reason: Pain, severe (8-10) Last Admin: 07/08/17 04:03 Dose: 1 mg Sodium Chloride (Sodium Chloride 0.9%) 1,000 mls @ 100 mls/hr IV .Q10H [facility] Last Admin: 07/08/17 04:29 Dose: Not Given Metronidazole 250 mg/ (Miscellaneous) 50 mls @ 100 mls/hr IVPB Q8 [facility] Last Admin: 07/08/17 06:00 Dose: Not Given Cefotaxime Sodium 1 gm/ Sodium (Chloride) 100 mls @ 100 mls/hr IV Q8H [facility] Insulin Human Regular (Novolin R) 0 unit SC ACHS [facility] PRN Reason: Protocol Last Admin: 07/08/17 12:05 Dose: 4 unit Losartan Potassium (Cozaar) 25 mg PO DAILY [facility] Last Admin: 07/08/17 10:34 Dose: 25 mg Metoprolol Tartrate (Lopressor) 50 mg PO BID [facility] Last Admin: 07/08/17 10:40 Dose: 50 mg Ondansetron HCl (Zofran Inj) 4 mg IVP Q4 PRN PRN Reason: Nausea/Vomiting Pantoprazole Sodium (Protonix Inj) 40 mg IVP DAILY [facility] Last Admin: 07/08/17 10:34 Dose: 40 mg Rosuvastatin Calcium (Crestor) 20 mg PO HS [facility] Last Admin: 07/07/17 23:09 Dose: 20 mg Tramadol HCl (Ultram) 50 mg PO TID [facility] Results - Vital Signs Recent Vital Signs: Last Vital Signs Temp 98.0 F 07/08/17 09:08 Pulse 99 H 07/08/17 09:08 Resp 20 07/08/17 09:08 BP 148/80 07/08/17 09:08 Pulse Ox 96 07/08/17 09:08 - Labs Result Diagrams: 07/08/17 07:22 07/08/17 07:22 Labs: Laboratory Results - last 24 hr 07/07/17 07/07/17 07/07/17 13:29 13:29 13:29 WBC 12.2 H D RBC 5.31 Hgb 14.0 Hct 43.1 MCV 81.2 MCH 26.4 L MCHC 32.5 L RDW 14.4 Plt Count 316 D MPV 8.5 Neut % (Auto) 79.4 H Lymph % (Auto) 12.3 L [place] % (Auto) 6.0 Eos % (Auto) 1.6 Baso % (Auto) 0.7 Neut # 9.7 H Lymph # 1.5 [place] # 0.7 Eos # 0.2 Baso # 0.1 PT INR APTT Sodium 130 L Potassium 5.5 H Chloride 97 L Carbon Dioxide 26 Anion Gap 13 BUN 12 Creatinine 0.5 L Est GFR ( Amer) > 60 Est GFR (Non-Af Amer) > 60 POC Glucose (mg/dL) Random Glucose 288 H Calcium 8.2 L Total Bilirubin 1.7 H AST 66 H ALT < 6 L Alkaline Phosphatase 131 H Total Protein 9.2 H Albumin 4.1 Globulin 5.0 H Albumin/Globulin Ratio 0.8 L Lipase 24 Urine Color Yellow Urine Clarity Clear Urine pH 6.0 Ur Specific [place] 1.033 H Urine Protein 2+ H Urine Glucose (UA) 3+ H Urine Ketones 1+ H Urine Blood 1+ H Urine Nitrate Negative Urine Bilirubin Negative Urine Urobilinogen Normal Ur Leukocyte Esterase Neg Urine WBC (Auto) < 1 Urine RBC (Auto) 3 Urine Bacteria Rare Blood Type Antibody Screen 07/07/17 07/07/17 07/07/17 18:35 18:35 21:55 WBC RBC Hgb Hct MCV MCH MCHC RDW Plt Count MPV Neut % (Auto) Lymph % (Auto) [place] % (Auto) Eos % (Auto) Baso % (Auto) Neut # Lymph # [place] # Eos # Baso # PT 13.1 H INR 1.1 APTT 25 Sodium Potassium Chloride Carbon Dioxide Anion Gap BUN Creatinine Est GFR ( Amer) Est GFR (Non-Af Amer) POC Glucose (mg/dL) 176 H Random Glucose Calcium Total Bilirubin AST ALT Alkaline Phosphatase Total Protein Albumin Globulin Albumin/Globulin Ratio Lipase Urine Color Urine Clarity Urine pH Ur Specific [place] Urine Protein Urine Glucose (UA) Urine Ketones Urine Blood Urine Nitrate Urine Bilirubin Urine Urobilinogen Ur Leukocyte Esterase Urine WBC (Auto) Urine RBC (Auto) Urine Bacteria Blood Type B POSITIVE Antibody Screen Negative 07/08/17 07/08/17 07/08/17 07:22 07:22 11:39 WBC 10.1 RBC 4.74 Hgb 12.8 Hct 38.5 MCV 81.4 MCH 27.0 MCHC 33.1 RDW 14.3 Plt Count 320 MPV 8.0 Neut % (Auto) Lymph % (Auto) [place] % (Auto) Eos % (Auto) Baso % (Auto) Neut # Lymph # [place] # Eos # Baso # PT INR APTT Sodium 134 Potassium 3.4 L Chloride 97 L Carbon Dioxide 29 Anion Gap 11 BUN 8 L Creatinine 0.5 L Est GFR ( Amer) > 60 Est GFR (Non-Af Amer) > 60 POC Glucose (mg/dL) 271 H Random Glucose 204 H Calcium 7.9 L Total Bilirubin 1.1 AST 19 ALT 16 L D Alkaline Phosphatase 114 Total Protein 7.3 Albumin 3.5 Globulin 3.7 Albumin/Globulin Ratio 0.9 L Lipase Urine Color Urine Clarity Urine pH Ur Specific [place] Urine Protein Urine Glucose (UA) Urine Ketones Urine Blood Urine Nitrate Urine Bilirubin Urine Urobilinogen Ur Leukocyte Esterase Urine WBC (Auto) Urine RBC (Auto) Urine Bacteria Blood Type Antibody Screen Assessment & Plan - Assessment and Plan (Free Text) Assessment: 61 year old male with past medical history of CABG, HTN, DM S/P appendectomy Resume all cardiac meds
[2017-07-08] MEDS: Cefotaxime 1 GM in Sodium Chloride 0.9% 100 ML IV SCH (19:18)
[2017-07-09] MEDS: Cefotaxime 1 GM in Sodium Chloride 0.9% 100 ML IV SCH (03:30)
[2017-07-09] MEDS: (Novolin R) Insulin Human Regular 100 units/ml vial SC SCH (07:49)
[2017-07-09 09:28] VITALS: BP 173/90; PULSE 92; TEMP 97.9; O2SAT 94
--- NOTE | 2017-07-09 10:11 | CP.PCM.PN ---
Subjective - Date & Time of Evaluation Date of Evaluation: 07/08/17 Time of Evaluation: 10:10 - Subjective Subjective: The patient is currently feeling well. He denies any chest pain. No nausea or vomiting. Tolerating the oral feeding Clinical examination is unremarkable. Mild abdominal tenderness. Making urine Vital signs stable. Surgical point of view patient is clinically stable. I will discharge the patient tomorrow. Status post appendectomy. Objective - Vital Signs/Intake and Output Vital Signs (last 24 hours): Temp Pulse Resp BP Pulse Ox 97.9 F 92 H 20 173/90 H 94 L 07/09/17 09:26 07/09/17 09:26 07/09/17 09:26 07/09/17 09:26 07/09/17 09:26 Intake and Output: 07/09/17 07/09/17 06:59 18:59 Intake Total 30 Balance 30 - Labs Labs: 07/08/17 07:22 07/08/17 07:22 PT 13.1 SECONDS (9.7-12.2) H 07/07/17 18:35 INR 1.1 07/07/17 18:35 APTT 25 SECONDS (21-34) 07/07/17 18:35
--- NOTE | 2017-07-09 10:12 | CP.PCM.DIS ---
Provider - Provider Date of Admission: 07/07/17 16:12 Attending physician: Bonita Dunlap MD Time Spent in preparation of Discharge (in minutes): 45 Hospital Course - Lab Results Lab Results: Most Recent Lab Values WBC 10.1 K/uL (4.8-10.8) 07/08/17 07:22 RBC 4.74 Mil/uL (4.40-5.90) 07/08/17 07:22 Hgb 12.8 g/dL (12.0-18.0) 07/08/17 07:22 Hct 38.5 % (35.0-51.0) 07/08/17 07:22 MCV 81.4 fL (80.0-94.0) 07/08/17 07:22 MCH 27.0 pg (27.0-31.0) 07/08/17 07: MCHC 33.1 g/dL (33.0-37.0) 07/08/17 07: RDW 14.3 % (11.5-14.5) 07/08/17 07:22 Plt Count 320 K/uL (130-400) 07/08/17 07:22 MPV 8.0 fL (7.2-11.7) 07/08/17 07:22 Neut % (Auto) 79.4 % (50.0-75.0) H 07/07/17 13:29 Lymph % (Auto) 12.3 % (20.0-40.0) L 07/07/17 13:29 [place] % (Auto) 6.0 % (0.0-10.0) 07/07/17 13:29 Eos % (Auto) 1.6 % (0.0-4.0) 07/07/17 13:29 Baso % (Auto) 0.7 % (0.0-2.0) 07/07/17 13:29 Neut # 9.7 K/uL (1.8-7.0) H 07/07/17 13:29 Lymph # 1.5 K/uL (1.0-4.3) 07/07/17 13:29 [place] # 0.7 K/uL (0.0-0.8) 07/07/17 13:29 Eos # 0.2 K/uL (0.0-0.7) 07/07/17 13:29 Baso # 0.1 K/uL (0.0-0.2) 07/07/17 13:29 PT 13.1 SECONDS (9.7-12.2) H 07/07/17 18:35 INR 1.1 07/07/17 18:35 APTT 25 SECONDS (21-34) 07/07/17 18:35 Sodium 134 mmol/L (132-148) 07/08/17 07:22 Potassium 3.4 mmol/L (3.6-5.2) L 07/08/17 07:22 Chloride 97 mmol/L (98-107) L 07/08/17 07:22 Carbon Dioxide 29 mmol/L (22-30) 07/08/17 07:22 Anion Gap 11 (10-20) 07/08/17 07:22 BUN 8 mg/dL (9-20) L 07/08/17 07:22 Creatinine 0.5 mg/dL (0.8-1.5) L 07/08/17 07:22 Est GFR ( Amer) > 60 07/08/17 07:22 Est GFR (Non-Af Amer) > 60 07/08/17 07:22 POC Glucose (mg/dL) 195 mg/dL (65-110) H 07/09/17 06:52 Random Glucose 204 mg/dL (75-110) H 07/08/17 07:22 Calcium 7.9 mg/dl (8.6-10.4) L 07/08/17 07:22 Total Bilirubin 1.1 mg/dL (0.2-1.3) 07/08/17 07:22 AST 19 U/L (17-59) 07/08/17 07:22 ALT 16 U/L (21-72) L D 07/08/17 07:22 Alkaline Phosphatase 114 U/L (38-126) 07/08/17 07:22 Total Protein 7.3 g/dL (6.3-8.3) 07/08/17 07:22 Albumin 3.5 g/dL (3.5-5.0) 07/08/17 07:22 Globulin 3.7 gm/dL (2.2-3.9) 07/08/17 07:22 Albumin/Globulin Ratio 0.9 (1.0-2.1) L 07/08/17 07:22 Lipase 24 U/L (23-300) 07/07/17 13:29 Urine Color Yellow (YELLOW) 07/07/17 13: Urine Clarity Clear (Clear) 07/07/17 13: Urine pH 6.0 (5.0-8.0) 07/07/17 13:29 Ur Specific [place] 1.033 (1.003-1.030) H 07/07/17 13:29 Urine Protein 2+ mg/dL (NEGATIVE) H 07/07/17 13:29 Urine Glucose (UA) 3+ mg/dL (Normal) H 07/07/17 13:29 Urine Ketones 1+ mg/dL (NEGATIVE) H 07/07/17 13: Urine Blood 1+ (NEGATIVE) H 07/07/17 13: Urine Nitrate Negative (NEGATIVE) 07/07/17 13: Urine Bilirubin Negative (NEGATIVE) 07/07/17 13: Urine Urobilinogen Normal mg/dL (0.2-1.0) 07/07/17 13:29 Ur Leukocyte Esterase Neg Kvng/uL (Negative) 07/07/17 13:29 Urine WBC (Auto) < 1 /hpf (0-5) 07/07/17 13:29 Urine RBC (Auto) 3 /hpf (0-3) 07/07/17 13:29 Urine Bacteria Rare (<OCC) 07/07/17 13:29 Blood Type B POSITIVE 07/07/17 18:35 Antibody Screen Negative 07/07/17 18:35 - Hospital Course Hospital Course: chief complaint: abd pain History present illness: 60-year-old male with history of diabetes, hypertension, hypercholesterolemia, coronary artery disease, status post coronary a to bypass grafting 5 vessel disease in February 2016, came to ER with abdominal pain for 2 days duration started yesterday associated with nausea and no vomiting. pain localised to the RLQ and went to see PMD and sent to ER. Patient has a uncontrolled diabetes, currently taking insulin, and if he has a significant weight gain in the last 2 months almost 18 pounds. Patient is also having some problems sleeping at night. Patient went to the emergency room on March 23, 2016 for cough. Patient had x-ray which was showing some pleural effusion. Past medical history: Hypertension, diabetes, hypercholesterolemia, CAD Surgical history: History of lower back surgery in 1992, coronary a to bypass grafting February 2016. Five-vessel bypass Allergies: No known drug allergy Family history: Parents history of heart disease. Siblings also had a history of heart disease family history of diabetes noted Social history: Currently denies any alcohol. Patient used to smoke in the past at least one pack per day for 23 years: No smoking now for the last 5 years. Current medications noted Review of systems: Has no headache. But complaining of sore throat, frequency, cough on and off, shortness of breath occasionally. sudden abd pain and chills. Leg swelling bilaterally noted On examination: Vital signs reviewed Chest bilateral good air entry but basal rales and wheezing noted Patient has thick and short neck noted. The orall cavity is crowded Regular heart sound. Scar tissue in the sternal region and lower back noted Abdomen RLQ tenderness noted Extremities 1+ pedal edema bilaterally Patient had x-ray done in May 23, 2016 at the [facility], showing evidence of increasing markings, and left lower lung possibly atelectasis, effusion, fibrotic changes. Blood sugar is elevated labs reviwed elevated sugar CT abd appendicitis and appediculolith Assessment/recommendation: 60-year-old male came to the office. He has a history of uncontrolled diabetes currently on insulin, significant weight gain, not controlled well Hypertension , still elevated. Hypercholesterolemia on medications. Progressively worsening cough new Most likely patient given the history of COPD , smoking, heart disease and bypass surgery underlaying reactive airway disease , associated acute exacerbation of COPD, and fibrotic changes in the lungs cannot be ruled out. X-ray showing evidence of pleural effusion atelectasis and some chronic changes in the lung with new findings. pt with acute appencitis he will need the urgert surgery pt took his last palvix yesterday morning today no aspirin or plavix he has short neck and severe Ryan and pt is at high risk for sleep apnea related problems, avoid sedatives, only NSAID, tylenol as pain control cardiology consult spoke to pt IV antibiotic will f/u Patient underwent emergency appendectomy. Postoperatively the patient received platelets. Clinical stable after the surgery. Today patient is feeling much better, vital signs stable. Patient can discharge home today. Follow-up in 1 week Assessment and recommendation: Status post appendectomy, acute abdominal pain, acute appendicitis. Diabetes, hypertension, CAD, left pleural effusion. Patient will continue his home medications. Discharge Exam - Head Exam Head Exam: ATRAUMATIC, NORMAL INSPECTION Discharge Plan - Discharge Medications Prescriptions: oxyCODONE/Acetaminophen [Percocet 5/325 mg Tab] 1 ea PO Q4H PRN #20 tab PRN Reason: Pain, Moderate (4-7) - Follow Up Plan Condition: GUARDED Disposition: HOME/ ROUTINE Instructions: Oxycodone/Acetaminophen (By mouth), Laparoscopic Appendectomy (DC ) Additional Instructions: take your medications as instructed by your doctor. please call 's office to get an appointment to see him in his clinic for follow up visits Don't lift anything heavy. avoid drinking alcohol for your are taking medicine for pain . dont drive . Referrals: Jeremy Pacheco MD [Staff Provider] - Bonita Dunlap MD [Staff Provider] -
--- NOTE | 2017-07-11 04:48 | CARD ---
APPROVED REPORT EKG Measurement Heart [id number] <Conclusion> Normal sinus rhythm Nonspecific ST abnormality Abnormal ECG
== END 2017-07-09 09:36 | disposition home or self-care (01) | DRG 342 ==
LOC: C.ER 12:30 → C.9E 16:12 → C.3T 19:46 → C.9E 21:34 → C.6T 22:08
PROVIDERS: ADMIT Internal Medicine; ATTEND Internal Medicine
PROC: 0DTJ4ZZ Resection of Appendix, Percutaneous Endoscopic Approach (ICD-10-PCS; principal; 2017-07-07 20:19)
DX: K35.89 Other acute appendicitis (principal); J90 Pleural effusion, not elsewhere classified; E11.65 Type 2 diabetes mellitus with hyperglycemia; J44.1 Chronic obstructive pulmonary disease with (acute) exacerbation; J98.11 Atelectasis; I10 Essential (primary) hypertension; E78.00 Pure hypercholesterolemia, unspecified; Z95.1 Presence of aortocoronary bypass graft; I25.10 Atherosclerotic heart disease of native coronary artery without angina pectoris; Z79.4 Long term (current) use of insulin; G47.33 Obstructive sleep apnea (adult) (pediatric); Z87.891 Personal history of nicotine dependence

== ENCOUNTER 2018-08-05 09:24 | Outpatient (CLI) | payer MEDICARE, OTHER | END 2018-08-05 09:25 | disposition home or self-care (01) | LOC: C.CTH 09:24 ==